=== PATIENT | female | born 1985 | race Caucasian/White ===

== ENCOUNTER → 2021-09-05 15:11 | Outpatient (BNVA) | payer OTHER, SELFPAY | PROVIDERS: Visit Provider Obstetrics & Gynecology | DX: Z31.69 Encounter for other general counseling and advice on procreation (principal) | CPT/HCPCS: 83036; 83520; 83525; 84443 ==

== ENCOUNTER → 2021-09-19 08:54 | Outpatient (BNVA) | payer OTHER, SELFPAY | PROVIDERS: Visit Provider Obstetrics & Gynecology | DX: N97.9 Female infertility, unspecified (principal) | CPT/HCPCS: 76830 ==

== ENCOUNTER 2021-11-05 07:49 | Outpatient (CLI) | payer OTHER, SELFPAY ==
--- NOTE | 2021-11-05 08:00 | FL_ITS ---
WS: [id number] Hysterosalpingogram, 11/05/2021 Clinical Data: N97.9 - Female infertility, unspecified Comparison: None. Fluoroscopy time: 0.4 minutes. Findings: Dr. Hairston injected the contrast material to fill the uterine cavity. There were air bubbles within the uterine cavity but no intraluminal filling defects. The configuration of the cavity was normal. The fallopian tubes filled normally and there was bilateral contrast extravasation into the peritoneu m. No evidence of fallopian tube obstruction or dilatation is seen. FL/FL hysterosalpingography [id number] Impression: Normal hysterosalpingogram.
[2021-11-05] MEDS: iohexol 300 mg/mL 50 mL Btl VAGINAL (08:43)
--- NOTE | 2021-11-05 09:41 | PM.OP ---
Operative Report Date of procedure: November 05, 2021 Pre-op Diagnosis: female infertility Post-op diagnosis: same Post-op Findings: normal uterine contour, patent fallopian tubes Procedure Done: hysterosalpingogram Pathology: none sent Surgeon: Elisabeth Hairston Anesthesia: None Estimated blood loss (mL): 0 IV fluids (mL): 0 Urine output (mL): 0 Complications: none Findings: 10 ml of contrast used normal uterine contour, patent fallopian tubes Condition: stable Disposition: no change Procedure: The patient was placed in the dorsal lithotomy position. The speculum was placed into the vagina and the cervix visualized. It was cleansed with betadine. A single tooth tenaculum was placed onto the anterior lip of the cervix. The uterus was sounded to 7 cm. The canula was placed through the cervix and into the uterus. 10 ml of contrast was injected into the uterus. Fluoroscopy was used to take images. All of the instruments were removed. A final picture was taken. The patient tolerated the procedure well. Counts were correct. She was dismissed home in stable condition.
== END 2021-11-05 07:50 | disposition home or self-care (01) ==
LOC: RAD 07:54
PROVIDERS: Visit Provider Obstetrics & Gynecology
DX: N97.9 Female infertility, unspecified (principal)
CPT/HCPCS: 74740

== ENCOUNTER → 2023-01-06 16:15 | Outpatient (BNVA) | payer OTHER, SELFPAY | PROVIDERS: Visit Provider Nurse Practitioner Women's Health | DX: Z01.419 Encounter for gynecological examination (general) (routine) without abnormal findings (principal) | CPT/HCPCS: 88175 ==

== ENCOUNTER 2023-03-05 14:08 | Outpatient (CLI) | payer OTHER, SELFPAY ==
--- NOTE | 2023-03-05 14:21 | XR_ITS ---
WS: [id number] Exam: XR hip RT 2-3V wo/w pel* [id number] Date/Time of Exam: 03/05/2023 2:27 PM Reason For Exam: V80.010A - Animal-rider injured by fall from or being thr... No acute fracture or dislocation. The joint compartments well maintained. Small subcortical cyst in t he femoral neck. Normal soft tissues. XR/XR hip RT 2-3V wo/w pel* [id number] IMPRESSION: 1. No fracture or other significant finding.
== END 2023-03-05 14:09 | disposition home or self-care (01) ==
LOC: RAD 14:13
PROVIDERS: PCP Registered Nurse; Visit Provider Registered Nurse
DX: S79.911A Unspecified injury of right hip, initial encounter (principal); V80.010A Animal-rider injured by fall from or being thrown from horse in noncollision accident, initial encounter
CPT/HCPCS: 73502

== ENCOUNTER 2024-09-01 07:57 | Outpatient (CLI) | payer OTHER, SELFPAY ==
[2024-09-01 08:42] LABS: Progesterone 32.37 ng/mL
== END 2024-09-01 07:58 | disposition home or self-care (01) ==
LOC: LAB 07:59
PROVIDERS: PCP Registered Nurse; Visit Provider Specialist
DX: Z32.00 Encounter for pregnancy test, result unknown (principal)
CPT/HCPCS: 36415; 84144; 84702

== ENCOUNTER 2024-09-04 07:38 | Outpatient (CLI) | payer OTHER, SELFPAY ==
[2024-09-04 08:43] LABS: Progesterone 29.65 ng/mL
== END 2024-09-04 07:39 | disposition home or self-care (01) ==
LOC: LAB 07:39
PROVIDERS: PCP Registered Nurse; Visit Provider Specialist
DX: Z32.00 Encounter for pregnancy test, result unknown (principal)
CPT/HCPCS: 84144; 84702

== ENCOUNTER → 2024-09-21 08:09 | Outpatient (BNVA) | payer OTHER, SELFPAY | PROVIDERS: PCP Registered Nurse; Visit Provider Nurse Practitioner Women's Health | DX: Z32.01 Encounter for pregnancy test, result positive (principal); N92.6 Irregular menstruation, unspecified | CPT/HCPCS: 81025; 84702; 86850; 86900 ==

== ENCOUNTER → 2024-10-03 09:29 | Outpatient (BNVA) | payer OTHER, SELFPAY | PROVIDERS: PCP Registered Nurse; Visit Provider Nurse Practitioner Women's Health | DX: Z36.9 Encounter for antenatal screening, unspecified (principal) | CPT/HCPCS: 76801 ==

== ENCOUNTER → 2024-10-16 15:26 | Outpatient (BNVA) | payer OTHER, SELFPAY | PROVIDERS: PCP Registered Nurse; Visit Provider Nurse Practitioner Women's Health | DX: O09.90 Supervision of high risk pregnancy, unspecified, unspecified trimester (principal) | CPT/HCPCS: 80307; 84315; 84443; 85025; 86592; 86762; 86803; 86850; 86900; 87086; 87340; 87491; 87591; 87661; 87806 ==

== ENCOUNTER → 2024-11-21 08:06 | Outpatient (BNVA) | payer OTHER, SELFPAY | PROVIDERS: PCP Registered Nurse; Visit Provider Nurse Practitioner Women's Health | DX: O09.90 Supervision of high risk pregnancy, unspecified, unspecified trimester (principal) | CPT/HCPCS: 82950; 84315 ==

== ENCOUNTER → 2024-12-21 09:18 | Outpatient (BNVA) | payer OTHER, SELFPAY | PROVIDERS: PCP Registered Nurse; Visit Provider Obstetrics & Gynecology | DX: Z36.9 Encounter for antenatal screening, unspecified (principal) | CPT/HCPCS: 76805 ==

== ENCOUNTER → 2024-12-25 09:09 | Outpatient (BNVA) | payer OTHER, SELFPAY | PROVIDERS: PCP Registered Nurse; Visit Provider Obstetrics & Gynecology | DX: O09.90 Supervision of high risk pregnancy, unspecified, unspecified trimester (principal) | CPT/HCPCS: 84315 ==

== ENCOUNTER → 2025-01-18 08:52 | Outpatient (BNVA) | payer OTHER, SELFPAY | PROVIDERS: PCP Registered Nurse; Visit Provider Nurse Practitioner Women's Health | DX: O09.90 Supervision of high risk pregnancy, unspecified, unspecified trimester (principal) | CPT/HCPCS: 76816; 84315; 85025 ==

== ENCOUNTER → 2025-02-22 08:45 | Outpatient (BNVA) | payer OTHER, SELFPAY | PROVIDERS: PCP Registered Nurse; Visit Provider Nurse Practitioner Women's Health | DX: O09.90 Supervision of high risk pregnancy, unspecified, unspecified trimester (principal) | CPT/HCPCS: 82950; 84315 ==

== ENCOUNTER → 2025-03-08 15:58 | Outpatient (BNVA) | payer OTHER, SELFPAY | PROVIDERS: PCP Registered Nurse; Visit Provider Obstetrics & Gynecology | DX: O09.90 Supervision of high risk pregnancy, unspecified, unspecified trimester (principal) | CPT/HCPCS: 84315 ==

== ENCOUNTER → 2025-03-19 07:56 | Outpatient (BNVA) | payer OTHER, SELFPAY | PROVIDERS: PCP Registered Nurse; Visit Provider Nurse Practitioner Women's Health | DX: Z36.9 Encounter for antenatal screening, unspecified (principal) | CPT/HCPCS: 76816 ==

== ENCOUNTER → 2025-04-16 10:00 | Outpatient (BNVA) | payer OTHER, SELFPAY | PROVIDERS: PCP Registered Nurse; Visit Provider Obstetrics & Gynecology | DX: O09.90 Supervision of high risk pregnancy, unspecified, unspecified trimester (principal) | CPT/HCPCS: 84315; 87081 ==

== ENCOUNTER → 2025-04-23 09:11 | Outpatient (BNVA) | payer OTHER, SELFPAY | PROVIDERS: PCP Registered Nurse; Visit Provider Obstetrics & Gynecology | DX: O09.90 Supervision of high risk pregnancy, unspecified, unspecified trimester (principal) | CPT/HCPCS: 84315 ==

== ENCOUNTER 2025-04-30 09:52 | Outpatient (CLI) | payer OTHER, SELFPAY ==
[2025-04-30 09:48] VITALS: BMI 36.2
[2025-04-30 10:08] VITALS: BP 127/79; PULSE 81
[2025-04-30 10:23] VITALS: BP 124/73; PULSE 90
[2025-04-30 10:53] VITALS: BP 155/65; PULSE 90
[2025-04-30 11:08] VITALS: BP 146/67; PULSE 80
[2025-04-30 11:09] VITALS: BP 134/72; PULSE 75
[2025-04-30 11:23] VITALS: BP 129/66; PULSE 73
== END 2025-04-30 11:50 | disposition home or self-care (01) ==
LOC: OPOB 09:53 → OBGYN 09:53
PROVIDERS: Absent Provider Obstetrics & Gynecology; PCP Registered Nurse; Visit Provider Obstetrics & Gynecology
DX: O13.9 Gestational [pregnancy-induced] hypertension without significant proteinuria, unspecified trimester (principal); Z3A.00 Weeks of gestation of pregnancy not specified
CPT/HCPCS: 59025; 84315; 99211

== ENCOUNTER 2025-05-02 11:14 | Outpatient (CLI) | payer OTHER, SELFPAY ==
[2025-05-02 11:14] VITALS: BMI 35.1
[2025-05-02 11:38] VITALS: BP 125/78; PULSE 77
[2025-05-02 12:00] VITALS: BP 123/77; PULSE 75
== END 2025-05-02 12:14 | disposition home or self-care (01) ==
LOC: OPOB 11:18 → OBGYN 11:18
PROVIDERS: PCP Registered Nurse; Visit Provider Obstetrics & Gynecology
DX: O13.9 Gestational [pregnancy-induced] hypertension without significant proteinuria, unspecified trimester (principal); Z3A.00 Weeks of gestation of pregnancy not specified
CPT/HCPCS: 59025; 99211

== ENCOUNTER 2025-05-07 11:35 | Outpatient (CLI) | payer OTHER, SELFPAY ==
[2025-05-07 11:35] VITALS: RESP 18; BMI 35.3
[2025-05-07 11:44] VITALS: BP 126/78; PULSE 87
[2025-05-07 12:04] VITALS: BP 122/79; PULSE 88
== END 2025-05-07 12:22 | disposition home or self-care (01) ==
LOC: OPOB 11:40 → OBGYN 11:41
PROVIDERS: PCP Registered Nurse; Visit Provider Obstetrics & Gynecology
DX: O09.529 Supervision of elderly multigravida, unspecified trimester (principal); Z3A.00 Weeks of gestation of pregnancy not specified; O13.9 Gestational [pregnancy-induced] hypertension without significant proteinuria, unspecified trimester
CPT/HCPCS: 59025; 84315; 99211

== ENCOUNTER 2025-05-14 01:09 | Inpatient (IN) | payer OTHER, SELFPAY ==
[2025-05-14] VITALS (149 sets, daily range): BP systolic 88–188; BP diastolic 32–85; PULSE 58–119; RESP 14–18; TEMP 35.6–37.3; O2SAT 92–99; BMI 35.6
[2025-05-14 01:07] LABS: Hematocrit 36.1 % (36-47); Hemoglobin 12.40 g/dL (11.27-16.99); Mean Corpuscular HGB Conc 34.3 g/dL (30-55); Mean Corpuscular Hemoglobin 31.6 pg (27-33); Mean Corpuscular Volume 91.9 fl (85-98); Nucleated Red Blood Cells % 0 %; Platelet Count 126 10^3/cmm (157-399); Red Blood Count 3.93 10^6/uL (3.85-5.65); White Blood Count 9.40 10^3/uL (3.29-11.43)
[2025-05-14 01:30] LABS: Glucose Urine UA Negative (Normal); Nitrate Urine Negative (Negative); Specific Gravity, Urine 1.025 (1.005-1.030)
[2025-05-14 01:45] LABS: Add Urine Microscopic? YES; Alanine Aminotransferase 16 U/L (0-33); Albumin Level 3.4 g/dL (3.5-5.2); Alkaline Phosphatase 80 U/L (35-105); Aspartate Amino Transferase 22 U/L (0-32); Blood Urea Nitrogen 12 mg/dL (6-20); Calcium 9.5 mg/dL (8.5-10.5); Carbon Dioxide 20 mmol/L (22-29); Chloride 104 mmol/L (98-107); Globulin 2.7 g/dL (1.3-4.6); Glucose 90 mg/dL (65-115); Osmolality Calculated 281 mOsm/kg (285-295); Sodium 136 mmol/L (136-145); Total Protein 6.1 g/dL (6.6-8.7); Uric Acid 5.9 mg/dL (2.4-5.7)
[2025-05-14 01:48] LABS: Anion Gap 15.9 (5-19); Potassium 3.9 mmol/L (3.5-5.1)
[2025-05-14 01:51] LABS: UPRO/UCREAT Ratio 0.09 mg/mg CR
[2025-05-14] MEDS: oxytocin 30 UNIT/500 ML BAG IV (05:55)
[2025-05-14] MEDS: ROPivacaine premix 200 MG/100 ML PREMIX 10 MG EPIDURAL ×2 (07:20→11:46)
--- NOTE | 2025-05-14 07:24 | PM.OPHPUD ---
Labor & Delivery H&P Update Date of Procedure: May 14, 2025 Date H&P Performed: 05/07/25 Changes to previous documentation: 40yo female at 40.4wk IUP YZAAN 05/10/25 admitted to LD with c/o SROM at 2300 on 05/13/25(Nitrazine +). Pt admits to goodFM, and no vaginal bleeding. Hx of 2 SAB, with this conceived by IVF. EFM- Cat 1 Cx- 1cm/90%/-2 vtx initially , now 6cm/100%/-1. Hx reviewed- significant hs of low back pain and HAs. GBS- neg Receiving Epidural for pain management. Admission Diagnosis: Primary indication for procedure: SROM at 40.4 wk IUP Planned procedure: Management of labor Related Problem List Diagnoses (1) Supervision of high risk , antepartum: conception by IVF, initially 2 embryos but only one surviving. (2) Advanced maternal age (AMA), 40 years or greater: (3) Headache in : (4) 40 weeks gestation of : (5) SROM (spontaneous rupture of membranes):
--- NOTE | 2025-05-14 07:25 | ANES.PREANE2 ---
Pre-Anesthetic Assessment Height/Weight: Height 1.55 m Weight 85.729 kg Pulse BP Pulse Ox O2 Del Method 94 166/77 97 Room Air 05/14/25 07:16 05/14/25 07:16 05/14/25 07:13 05/14/25 00:30 Preop Diagnosis: Active labor Epidural Familial anesthetic complications: none Was Beta Alex taken within 24 hours: N/A Was Clonidine taken within 24 hours: N/A Last Intake: 21:00 Social No alcohol and No tobacco Exam alert, oriented x 3, clear to auscultation bilaterally and regular rate & rhythm Airway Cervical ROM: within normal limits Mallampati: Class II Dentition: full History/ROS No significant history except as noted Pulmonary None reported CV/HEM None reported None reported Hepatic None reported GI Gastroesophageal Reflux Disease Metabolic None reported Musc/skel Osteoarthritis/DJD Neuropsych None reported Anesthetic Plan ASA status: 2 Anesthesia: Eval. for regional block (Epidural) Risk of > 500 ml blood loss (7ml/kg in children): No Medications/Allergies Home Medications ?Medication ?Instructions ?Recorded ?Confirmed ?Last Taken ?Type docosahexaenoic acid 200 mg 200 mg PO DAILY 09/21/24 05/14/25 05/13/25 History capsule ( DHA) [id number]-nypshgww 1 cap PO Q8H PRN pain #30 caps 11/21/24 05/14/25 Unknown Rx 50 mg-300 mg-40 mg capsule (Fioricet) famotidine 20 mg tablet (Pepcid) 20 mg PO DAILY 04/04/25 05/14/25 05/13/25 History magnesium gluconate 12.5 mg 500 mg PO TID 04/04/25 05/14/25 05/13/25 History magnesium (250 mg) tablet Allergies Allergy/AdvReac Type Severity Reaction Status Date / Time doxycycline Allergy Mild Hives, Verified 05/07/25 10:29 fever Sulfa (Sulfonamide Allergy Unknown unknown Verified 05/07/25 10:29 Antibiotics) sulfamethoxazole (From Allergy Unknown unknown Verified 05/07/25 10:29 Bactrim) trimethoprim (From Bactrim) Allergy Unknown unknown Verified 05/07/25 10:29 Current Medications Generic Name Dose Route Start Last Admin Trade Name Freq PRN Reason Stop Dose Admin Acetaminophen 650 mg 05/14/25 00:56 05/14/25 04:14 Acetaminophen 325 Mg Tablet PO 650 mg Q6H PRN Administration Mild pain or temp > 100.4 Calcium Carbonate 1,000 mg 05/14/25 00:56 05/14/25 02:51 Calcium Carbonate 500 Mg Chew Tablet PO 1,000 mg Q4H PRN Administration Heartburn/Indigestion (Use 1st) Dextrose/Lactated Ringer's 1,000 mls @ 125 mls/hr 05/14/25 01:00 05/14/25 05:56 Dextrose 5%-Lactated Ringers IV 125 mls/hr .Q8H SANJEEV Administration Oxytocin 30 unit in 500 mls @ 1 mls/hr 05/14/25 03:15 05/14/25 06:15 Pitocin IV 0 milliunit/min .Q24H SANJEEV 0 mls/hr Protocol Titration 1 MILLIUNIT/MIN PFSH Anesthesia Medical History No pertinent past medical history neghx: htn, dm, thyroid, dvt/pe PCP: none Surgical History History of loop electrical excision procedure (LEEP) 2006 History of hip surgery cartilage repaired-left side Family History Grandmother Cancer Paternal Father Diabetes Mother Hypertension Other Stroke Denies family history of CAD (coronary artery disease) Clotting disorder Hyperlipidemia Chronic kidney disease (CKD) Bleeding disorder Thyroid disease Social History Smoking and tobacco/nicotine status: former use of tobacco/nicotine Alcohol intake: never Substance/Drug Use: never Adopted: No Caregiver/support person: No Lives independently: No Household members: spouse Marital status: service: Yes status: Medically Discharged/Retired branch: [employer] Known or Potential Exposure: None Current occupational status: employed Sexually active: Yes Do you think of yourself as: Straight/Heterosexual Current gender identity: Female Female Reproductive History : 3 Data Anesthesia 05/14/25 00:42 05/14/25 00:42 Short CBC 05/14/25 Range/Units 00:42 WBC 9.40 (3.29-11.43) 10^3/uL Hgb 12.40 (11.27-16.99) g/dL Hct 36.1 (36-47) % MCV 91.9 (85-98) fl Plt Count 126 L (157-399) 10^3/cmm Neut % (Auto) 67.5 % Neut # (Auto) 6.34 (1.8-7.7) 10^3/uL BMP 05/14/25 00:42 Sodium 136 Potassium 3.9 Chloride 104 Carbon Dioxide 20 L BUN 12 Creatinine 0.6 Glucose 90 Calcium 9.5 Liver Function 05/14/25 Range/Units 00:42 Total Bilirubin 0.2 (0.15-1.2) mg/dL AST 22 (0-32) U/L ALT 16 (0-33) U/L Alkaline Phosphatase 80 (35-105) U/L Albumin 3.4 L (3.5-5.2) g/dL Urine 05/14/25 05/14/25 Range/Units 00:40 00:42 Urine Color Cancelled Yellow Urine Appearance Cancelled Clear Urine pH Cancelled 6.0 Ur Specific [place] Cancelled 1.025 Urine Protein Cancelled Negative Urine Glucose (UA) Cancelled Negative Urine Ketones Cancelled Trace Urine Nitrate Cancelled Negative Urine Bilirubin Cancelled Negative Ur Leukocyte Esterase Cancelled Negative Urine RBC Cancelled 21-50 H Urine WBC Cancelled 0-5 Ur Renal Epithelial Cell Cancelled Blood Bank 05/14/25 00:42 Blood Type A Positive Rho(D) Type Rh positive Antibody Screen Negative Anesthesia Procedures Epidural Time Out Performed: Yes Consents Signed: Procedure Consent Consent: from patient, risks and benefits reviewed and patient agrees to proceed Lumbar Level: L3-L4 Epidural position: sitting Epidural procedure: sterile prep of area, 1% lidocaine to numb the area, 18 g needle, negative for paresthesia passed, neg for paresthesia, test dose given, 1.5% xylocaine 1:200k epi, 0.2% Ropivacaine bolus ml (5), placed PCEA, no systemic response, sterile dressing applied, L.U.D. no apparent complications and 0.2% Ropiavacaine @ mls/hr (10) Additional Comments: GERMAINE 5cm, catheter left at 11cm, neg. heme CSF. Tolerated well
--- NOTE | 2025-05-14 08:34 | P.PCN_ITS ---
Bone Marrow Biopsy Bone Marrow Biopsy: I was consulted by [] office regarding bone marrow biopsy on []. Briefly, the patient is a [] year old [] with []. In the Outpatient Services Department, with nursing staff and laboratory technologists in attendance, the procedure was discussed with the patient. Appropriate consent form had been signed. Appropriate alternatives, benefits and risks of procedure were discussed with the patient and she was pre- operatively assessed with a history and physical by myself and cleared for the biopsy procedure. The patient did request IV sedation and that was provided by the Anesthesia Department. Thank you for allowing me to participate in this patient's care and diagnosis. Coding Level of Care Code Acute Code for Chg Fwd
--- NOTE | 2025-05-14 09:26 | ANE.PACU2 ---
Inpatient post-anesthesia follow up: Vital signs: Temperature 96.8 F Pulse Rate 93 Respiratory Rate Blood Pressure 151/85 Pulse Oximetry 97 Oxygen Delivery Me thod Room Air Oxygen Flow Rate Fraction of Inspir ed Oxygen Pain level: 4 Additional Comments: Called to room for one sided epidural, patient place right side down, pulled catheter 1cm, bolus 5mL ropiv. given and 100mcg fentanyl. Re-assessed 20minutes later with improvement right side now numb, pt. resting comfortably.
--- NOTE | 2025-05-14 10:53 | P.PN_ITS ---
SHAPE HAND Subjective 2 Subjective: Interval history: 40-year-old female G3, P0 at 40.4 weeks gestation conceived by IVF. Labor augmented with Pitocin (1 mu), presently at 9 cm / 100%/+1 vertex. EFM?category 1. Nursing staff being supportive of patient, now having increased anxiety. Feeling pelvic pressure. Labor: Station: 0 Amniotic Membrane Status: Ruptured Monitor Mode: External Contraction Pattern: Regular Vitals/I&O/Wt Last Vital Signs Temp 96.8 F L 05/14/25 09:01 Pulse 85 05/14/25 10:46 BP 157/77 05/14/25 10:41 Pulse Ox 96 05/14/25 10:46 O2 Del Method Room Air 05/14/25 00:30 05/13/25 05/14/25 05/14/25 22:59 06:59 14:59 Intake Total 0.333 / 0.333 0 / 0 Balance 0.333 / 0.333 0 / 0 Weight last 48 hrs Weight 85.729 kg Physical Exam 2 Urinary Catheter Management: Hernandez: Cath Placed During This Visit: yes Urinary Catheter Date of Insertion: 05/14/25 Urinary Catheter Time of Insertion: 08:10 Data 05/14/25 00:42 05/14/25 00:42 A&P Assessment and plan (1) 40 weeks gestation of : (2) SROM (spontaneous rupture of membranes): (3) Supervision of high risk , antepartum: Advanced maternal age Conception by IVF PDMP PDMP Reviewed: Not Reviewed Attestations 2 Medical Necessity Statement*: Admission to labor and delivery for management of labor at 40.4 weeks with SROM. Coding Level of Care Code Acute Code for Chg Fwd Diagnoses 40 weeks gestation of Z3A.40 SROM (spontaneous rupture of membranes) Supervision of high risk , antepartum O09.90
[2025-05-14] MEDS: ondansetron 2 mg/ML SDV 2 mL 4 MG IVP (10:58)
--- NOTE | 2025-05-14 12:26 | PM.MISC ---
Miscellaneous Note Note: Return of pain on contractions on right side, gave bupivicaine 0.25% 10 ml via epidural with minimal improvement. Patient is 9.5 cm dilated ands discussed replacement as option. Patient declining replacement at this time given how far progressed she is. Increased rate to 13 ml/hr and increased bolus dose to 6 ml in an effort to ameliorate symptoms until pushing can commence
--- NOTE | 2025-05-14 13:39 | PM.OBGYPN ---
SENIOR ADMINISTRATIVE SERVICES OFFICER Subjective Subjective: Interval history: 40-year-old female G3, P0 at 40.4 weeks gestation has progressed in labor to complete dilatation, +1 station. Patient has increased anxiety, discussion of her not wanting to continue labor or pushing and questions regarding proceeding with . Encourage patient for trial of pushing before consideration of section. Patient understands and agrees. Epidural has been redosed, comfort has improved. Her anxiety is mostly from her left hip pain. Labor: Station: -1 Amniotic Membrane Status: Ruptured Monitor Mode: External Contraction Pattern: Regular Vitals/I&O/Wt Last Vital Signs Temp 96.8 F L 05/14/25 09:01 Pulse 86 05/14/25 13:23 BP 180/82 05/14/25 13:23 Pulse Ox 97 05/14/25 12:36 O2 Del Method Room Air 05/14/25 00:30 05/13/25 05/14/25 05/14/25 22:59 06:59 14:59 Intake Total 0.333 / 0.333 102.1 / 102.1 Balance 0.333 / 0.333 102.1 / 102.1 Weight last 48 hrs Weight 85.729 kg Physical Exam Urinary Catheter Management: Hernandez: Cath Placed During This Visit: yes Urinary Catheter Date of Insertion: 05/14/25 Urinary Catheter Time of Insertion: 08:10 Data 05/14/25 00:42 05/14/25 00:42 A&P Assessment and plan (1) SROM (spontaneous rupture of membranes): (2) 40 weeks gestation of : (3) Advanced maternal age (AMA), 40 years or greater: (4) Supervision of high risk , antepartum: (5) Left hip pain: PDMP PDMP Reviewed: Not Reviewed Attestations Medical Necessity Statement*: Patient admitted to labor and delivery with SROM at 40.4 weeks gestation Coding Level of Care Code Acute Code for Chg Fwd Diagnoses SROM (spontaneous rupture of membranes) 40 weeks gestation of Z3A.40 Advanced maternal age (AMA), 40 years or greater Supervision of high risk , antepartum O09.90 Left hip pain M25.552
--- NOTE | 2025-05-14 14:16 | P.PN_ITS ---
WAIST CUTTER Subjective 2 Subjective: Interval history: 40-year-old female G3, P0 at 40.4 weeks gestation, conception by IVF, has progressed to complete dilatation and has been pushing x 2 hours. Patient requests section delivery instead of proceeding for a vaginal delivery. Risk to include bleeding, infection, injury to pelvic organs and anesthesia reviewed in great extent patient understands and consent signed. Patient has had a few elevated systolic blood pressures while pushing, will reevaluate pressures after delivery to see if magnesium sulfate and other antihypertensives are needed. Nursing staff advised to call or team and anesthesia to prepare for primary section delivery. Labor: Station: -1 Amniotic Membrane Status: Ruptured Monitor Mode: External Contraction Pattern: Regular Vitals/I&O/Wt Last Vital Signs Temp 96.1 F L 05/14/25 14:11 Pulse 96 05/14/25 14:11 BP 146/72 05/14/25 14:11 Pulse Ox 96 05/14/25 14:10 O2 Del Method Room Air 05/14/25 00:30 05/13/25 05/14/25 05/14/25 22:59 06:59 14:59 Intake Total 0.333 / 0.333 102.1 / 102.1 Balance 0.333 / 0.333 102.1 / 102.1 Weight last 48 hrs Weight 85.729 kg Physical Exam 2 Urinary Catheter Management: Hernandez: Cath Placed During This Visit: yes Urinary Catheter Date of Insertion: 05/14/25 Urinary Catheter Time of Insertion: 08:10 Data 05/14/25 00:42 05/14/25 00:42 A&P Assessment and plan (1) SROM (spontaneous rupture of membranes): (2) 40 weeks gestation of : (3) Left hip pain: (4) Advanced maternal age (AMA), 40 years or greater: (5) Supervision of high risk , antepartum: PDMP PDMP Reviewed: Not Reviewed Attestations 2 Medical Necessity Statement*: Patient admitted to labor and delivery with SROM for management of labor. Coding Level of Care Code Acute Code for Chg Fwd Diagnoses SROM (spontaneous rupture of membranes) 40 weeks gestation of Z3A.40 Left hip pain M25.552 Advanced maternal age (AMA), 40 years or greater Supervision of high risk , antepartum O09.90
[2025-05-14] MEDS: ceFAZolin 2,000 mg SDV 2000 MG IVP (14:25)
[2025-05-14] MEDS: metoclopramide 5 mg/mL SDV 2 mL 10 MG IV (14:25)
--- NOTE | 2025-05-14 15:52 | P.PCNOB_ITS ---
Delivery Note: Date of delivery: May 14, 2025 Pre-delivery diagnoses: 40-year-old female at 40.4 weeks g estation High risk SROM IVF conception Advanced maternal age Degenerative disc disease with left hip pain Post-delivery diagnoses: Same Procedure: Primary low-transverse section Op report anesthesia: Spinal Delivering Physician: Viri Sanchez DO Estimated blood loss (mL): 500 Findings: Viable baby girl Pre-Delivery Course: 40-year-old female at 40.4 weeks g estation was admitted to labor and d [facility] after SROM at 2300 on 05/13/2025. At initial pelvic exam patient was 5 to 6 cm and progressed rapidly to 8 cm. Patient's labor was augmented with Pitocin and she progressed to complete dilatation, and pushed for approximately 2 hours with very little descent from +1 station. Presentation of persistent OP was noted. Patient requested to proceed with section delivery for she no longer wanted to push and refused a vaginal delivery. Risk and benefits of the surgical procedure were reviewed with patient, she verbalized understanding and consents were signed. Delivery: 40-year-old female delivered via l ow-transverse section, patient had labored and progressed to complete dilatation with +1 OP presentation. Patient requested elective for she no longer wanted to push to achieve a vaginal delivery. After informed consent, patient was transported to surgical suite position for spinal anesthetic. Patient was then repositioned in the supine position with a left lateral tilt with heart tones dopplered in the 140s. The abdomen was prepped and draped in the standard fashion. Timeout was performed with all in agreement. A Pfannenstiel incision was made with a knife and extended to the fascia the fascia was incised and the incision lateralized. The rectus muscles was entered in the midline and the peritoneum dissected superiorly and inferiorly. Peritoneum was entered and the incision extended. A bladder blade was placed and a bladder flap created with Metzenbaums and pickups and displaced with the bladder blade. A low transverse uterine incision was made with a knife and extended laterally. The bag of montoya were entered small amount of meconium noted. The vertex was elevated and delivered through the incision atraumatically followed by the anterior and posterior shoulders with the remainder of the baby's body to follow. Spontaneous robust cry was noted. After delayed clamping of the cord the cord was clamped x 2 and transected. The baby was shown to mother and then placed on the warmer for nursing assessment. Arterial and venous blood gases were drawn and handed off. The placenta was manually removed the uterus exteriorized and wiped clean with a moist lap sponge, IV solution containing Pitocin was started in a bolus manner. The uterus was massaged and noted to be firm.. Bladder blade was replaced to protect the bladder and the uterine incision was closed with 0 Vicryl in a running interlocking stitch. The incision was oversewn with another 0 Vicryl with good approximation and hemostasis. The posterior cul-de-sac and sidewalls were wiped clean with a moist lap sponge and the uterus replaced in the abdomen. The peritoneum and rectus muscle approximated with 2-0 Vicryl the fascia approximated with 0 Vicryl in a running stitch the subcu fat approximated with 2-0 Vicryl and the skin approximated in a subcuticular manner with 4-0 Vicryl. The incision was cleansed and noted to be hemostatically intact. The uterus and vaginal vault were cleared of clots and cleaned. The uterus massaged and noted to be firm. Mother and infant are both in stable and satisfactory condition Needle and instrument and sponge count was correct. ?8/9 weight?pending Post-Delivery Status: Stable History History History 3 Term 1 0 Miscarriages/Ectopic 2 Living Children 1 Past Pregnancies Del. Date GA/Weeks Outcome Route Wt Inf Gender Labor Lgth Comp. Anesth esia Location 05/14/25 40 live - full term Female regional A&P Assessment and plan (1) Delivery by section of full-term infant: Patient requested elective section, declined continuation of pushing for vaginal delivery. 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
[2025-05-15 02:59] LABS: Hematocrit 30.4 % (36-47); Hemoglobin 10.20 g/dL (11.27-16.99); Mean Corpuscular HGB Conc 33.6 g/dL (30-55); Mean Corpuscular Hemoglobin 31.2 pg (27-33); Mean Corpuscular Volume 93.0 fl (85-98); Platelet Count 111 10^3/cmm (157-399); Red Blood Count 3.27 10^6/uL (3.85-5.65); White Blood Count 13.50 10^3/uL (3.29-11.43)
[2025-05-15 04:50] VITALS: BP 103/53; PULSE 68
--- NOTE | 2025-05-15 08:00 | ANE.PACU2 ---
Inpatient post-anesthesia follow up: Airway intact: Yes Vital signs: Temperature 98.3 F Pulse Rate 84 Respiratory Rate 16 Blood Pressure 151/75 Pulse Oximetry 98 Oxygen Delivery Me thod Room Air Oxygen Flow Rate Fraction of Inspir ed Oxygen Hydration adequate: Yes Nausea and vomiting: No Pain level: 1 Mental status: Baseline Additional Comments: Patient went to C section and epidural pulled for spinal Epidural Start/End: Epidural Start Date: 05/14/25 Epidural Start Time: 07:07 Epidural End Date: 05/14/25 Epidural End Time: 14:30
[2025-05-15 09:00] VITALS: BP 107/53; PULSE 74; RESP 16; TEMP 36.7
[2025-05-15 09:12] VITALS: BP 107/53; PULSE 74
[2025-05-15] MEDS: PRENATAL VIT NO.130/IRON/FOLIC 1 EACH TABLET PO (09:25)
--- NOTE | 2025-05-15 11:50 | P.PN_ITS ---
MANAGER OPERATIONS RESEARCH Subjective 2 Subjective: Interval history: c/o mild incisional pain no bleeding, nausea, vomiting tolerating PO well caring for without any difficulties Labor: Station: -1 Amniotic Membrane Status: Ruptured Monitor Mode: Palpation Contraction Pattern: Regular Status: Category I Vitals/I&O/Wt Last Vital Signs Temp 98.1 F 05/15/25 09:00 Pulse 74 05/15/25 09:12 Resp 16 05/15/25 09:00 BP 107/53 05/15/25 09:12 Pulse Ox 94 05/14/25 19:06 O2 Del Method Room Air 05/15/25 09:00 05/15/25 05/15/25 05/15/25 06:59 14:59 22:59 Intake Total 1295.25 / 4004.35 Output Total 675 / 1975 Balance 620.25 / 9.35 Weight last 48 hrs Weight 189 lb Physical Exam 2 Narrative: General comfortable, awake, alert VS afebrile, normal Lungs: clear Cor: RRR Abd: soft, nontender Wound clean and dry Ext: no edema postop Hgb 10.2 Urinary Catheter Management: Hernandez: Cath Placed During This Visit: yes, but has since been removed by the nurse Reason for Continuing Indwelling Catheter: Decision to DC Catheter Urinary Catheter Date of Insertion: 05/14/25 Urinary Catheter Time of Insertion: 08:10 Date Urinary Catheter Removed: 05/15/25 Time Urinary Catheter Discontinued: 07:40 Data 05/15/25 02:50 05/14/25 00:42 Micro: Microbiology 05/14/25 00:42 Urine Culture - Preliminary Urine,Clean Catch A&P Assessment and plan 1. Delivery by section of full-term infant: POD #1 primary low-transverse doing well continue postop care ambulate PDMP PDMP Reviewed: Not Reviewed Attestations 2 Medical Necessity Statement*: patient s/p , for postoperative and care Coding Level of Care Code Acute Code for Chg Fwd Diagnoses Delivery by section of full-term O82
[2025-05-15] MEDS: HYDROcodone-acetaminophen 5-325 mg Tablet PO (12:16)
[2025-05-15 17:00] VITALS: TEMP 36.2
[2025-05-15 17:01] VITALS: BP 102/55; PULSE 78
[2025-05-15 22:40] VITALS: BP 112/59; PULSE 88
[2025-05-16] MEDS: HYDROcodone-acetaminophen 5-325 mg Tablet PO (02:39)
[2025-05-16 04:40] VITALS: BP 131/69; PULSE 81
[2025-05-16] MEDS: PRENATAL VIT NO.130/IRON/FOLIC 1 EACH TABLET PO (08:32)
[2025-05-16] MEDS: ferrous sulfate EC 325 mg Tablet PO (08:33)
[2025-05-16 08:34] VITALS: BP 141/76; PULSE 87
[2025-05-16 08:35] VITALS: BP 141/76; PULSE 87; RESP 16; TEMP 36.7; O2SAT 98
--- NOTE | 2025-05-16 12:50 | PM.OBGYDC ---
Discharge Providers COOPERER Date of Admission: 05/14/25 01:09 Date of Discharge: 05/16/25 Attending Provider at Admission: Viri Sanchez DO Attending Provider at Discharge: Bubba Reed MD Consults: none Primary COOPERER: Bubba Reed MD Primary Care Provider: JOEL Guallpa Diagnoses at Discharge Discharge Diagnosis 1. Delivery by section of full-term : Details from hospital stay: 40 y.o. A2 at 40 w 4 d no complications presented to L&D c/o spontaneous rupture of membranes with clear fluid patient progressed to complete dilatation She pushed for more than two hours with inadequate descent at that time, it was decided to proceed with for delivery Primary low-transverse was done without any complications patient did well postoperatively and was discharged to home on the second postoperative day Reason for Visit Reason for Visit: Possible ROM Brief History: 40 y.o. A2 at 40 w 4 d no complications presented to L&D c/o spontaneous rupture of membranes with clear fluid Hospital Course Hospital Course 40 y.o. A2 at 40 w 4 d no complications presented to L&D c/o spontaneous rupture of membranes with clear fluid patient progressed to complete dilatation She pushed for more than two hours with inadequate descent at that time, it was decided to proceed with for delivery Primary low-transverse was done without any complications patient did well postoperatively and was discharged to home on the second postoperative day Information Peripartum Data: Delivery Method: complications: none Physical Exam Narrative: General comfortable, awake, alert VS afebrile, normal Lungs: clear Cor: RRR Abd: soft, nontender Wound clean and dry Ext: no edema Postop Hgb 10.2 Urinary Catheter Management: Hernandez: Cath Placed During This Visit: yes, but has since been removed by the nurse Reason for Continuing Indwelling Catheter: Decision to DC Catheter Urinary Catheter Date of Insertion: 05/14/25 Urinary Catheter Time of Insertion: 08:10 Date Urinary Catheter Removed: 05/15/25 Time Urinary Catheter Discontinued: 07:40 History History History 3 Term 1 0 Miscarriages/Ectopic 2 Living Children 1 Past Pregnancies Del. Date GA/Weeks Outcome Route Wt Inf Gender Labor Lgth Comp. Anesthesia Location 05/14/25 40 live - full term Female regional Discharge Data Studies Completed and Pending Laboratory Results WBC 13.50 10^3/uL (3.29-11.43) H 05/15/25 02:50 RBC 3.27 10^6/uL (3.85-5.65) L 05/15/25 02:50 Hgb 10.20 g/dL (11.27-16.99) L 05/15/25 02:50 Hct 30.4 % (36-47) L 05/15/25 02:50 MCV 93.0 fl (85-98) 05/15/25 02:50 MCH 31.2 pg (27-33) 05/15/25 02:50 MCHC 33.6 g/dL (30-55) 05/15/25 02:50 RDW 13.7 % (12.1-15.1) 05/15/25 02:50 Plt Count 111 10^3/cmm (157-399) L 05/15/25 02:50 MPV 12.6 fL (7.4-10.4) H 05/15/25 02:50 Neut % (Auto) 67.5 % 05/14/25 00:42 Lymph % (Auto) 19.0 % 05/14/25 00:42 Bent % (Auto) 7.1 % 05/14/25 00:42 Eos % (Auto) 4.5 % 05/14/25 00:42 Baso % (Auto) 0.4 % 05/14/25 00:42 Neut # (Auto) 6.34 10^3/uL (1.8-7.7) 05/14/25 00:42 Lymph # (Auto) 1.8 10^3/uL (0.8-4.8) 05/14/25 00:42 Bent # (Auto) 0.7 10^3/uL (0.2-0.9) 05/14/25 00:42 Eos # (Auto) 0.4 10^3/uL (0.0-0.8) 05/14/25 00:42 Baso # (Auto) 0.0 10^3/uL (0.0-0.1) 05/14/25 00:42 Nucleated RBC % (auto) 0 % 05/14/25 00:42 Nucleated RBCs # 0.0 /100WBC 05/14/25 00:42 Sodium 136 mmol/L (136-145) 05/14/25 00:42 Potassium 3.9 mmol/L (3.5-5.1) 05/14/25 00:42 Chloride 104 mmol/L (98-107) 05/14/25 00:42 Carbon Dioxide 20 mmol/L (22-29) L 05/14/25 00:42 Anion Gap 15.9 (5-19) 05/14/25 00:42 BUN 12 mg/dL (6-20) 05/14/25 00:42 Creatinine 0.6 mg/dL (0.5-0.9) 05/14/25 00:42 GFR Calculation 110.2 mL/min (90-130) 05/14/25 00:42 Glucose 90 mg/dL (65-115) 05/14/25 00:42 Calculated Osmolality 281 mOsm/kg (285-295) L 05/14/25 00:42 Uric Acid 5.9 mg/dL (2.4-5.7) H 05/14/25 00:42 Calcium 9.5 mg/dL (8.5-10.5) 05/14/25 00:42 Total Bilirubin 0.2 mg/dL (0.15-1.2) 05/14/25 00:42 AST 22 U/L (0-32) 05/14/25 00:42 ALT 16 U/L (0-33) 05/14/25 00:42 Alkaline Phosphatase 80 U/L (35-105) 05/14/25 00:42 Total Protein 6.1 g/dL (6.6-8.7) L 05/14/25 00:42 Albumin 3.4 g/dL (3.5-5.2) L 05/14/25 00:42 Globulin 2.7 g/dL (1.3-4.6) 05/14/25 00:42 Urine Color Yellow (Yellow) 05/14/25 00:42 Urine Appearance Clear (CLEAR) 05/14/25 00:42 Urine pH 6.0 (5-7) 05/14/25 00:42 Ur Specific Lithia 1.025 (1.005-1.030) 05/14/25 00:42 Urine Protein Negative (Negative) 05/14/25 00:42 Urine Glucose (UA) Negative (Normal) 05/14/25 00:42 Urine Ketones Trace (Negative) 05/14/25 00:42 Urine Blood 2+ (Negative) A 05/14/25 00:42 Urine Nitrate Negative (Negative) 05/14/25 00:42 Urine Bilirubin Negative (Negative) 05/14/25 00:42 Prot Sulfosalicylic Acd Cancelled 05/14/25 00:40 Urine Urobilinogen 1.0 mg/dL (Negative) 05/14/25 00:42 Ur Leukocyte Esterase Negative (Negative) 05/14/25 00:42 Urine RBC 21-50 /hpf (0-2) H 05/14/25 00:42 Urine WBC 0-5 /hpf (0-5) 05/14/25 00:42 Ur Squamous Epith Cells 0-5 /hpf (0-5) 05/14/25 00:42 Ur Transition Epith Cell Cancelled 05/14/25 00:40 Ur Renal Epithelial Cell Cancelled 05/14/25 00:40 Calcium Oxalate Crystal Cancelled 05/14/25 00:40 Uric Acid Crystals Cancelled 05/14/25 00:40 Triple Phos Crystals Cancelled 05/14/25 00:40 Other Crystals Cancelled 05/14/25 00:40 Amorphous Sediment Not Reportable 05/14/25 00:42 Urine Bacteria None seen /hpf (NONE) 05/14/25 00:42 Hyaline Casts 0-4 /lpf H 05/14/25 00:42 Fine Granular Casts Cancelled 05/14/25 00:40 Coarse Granular Casts Cancelled 05/14/25 00:40 RBC Casts Cancelled 05/14/25 00:40 Other Casts Cancelled 05/14/25 00:40 Urine Mucus Cancelled 05/14/25 00:40 Urine Trichomonas Cancelled 05/14/25 00:40 Urine Yeast Cancelled 05/14/25 00:40 Urine Sperm Cancelled 05/14/25 00:40 Ur Oval Fat Bodies Cancelled 05/14/25 00:40 U Random Total Protein 12 mg/dL 05/14/25 00:42 Urine Creatinine 137 mg/dL (28-217) 05/14/25 00:42 Protein/Creatinin Ratio 0.09 mg/mg CR 05/14/25 00:42 Blood Type A Positive 05/14/25 00:42 Rho(D) Type Rh positive 05/14/25 00:42 Antibody Screen Negative 05/14/25 00:42 Procedures Performed primary low-transverse Vitals Last Vital Signs Temp 98.3 F 05/16/25 14:45 Pulse 84 05/16/25 14:51 Resp 16 05/16/25 14:45 BP 151/75 05/16/25 14:51 Pulse Ox 98 05/16/25 14:45 O2 Del Method Room Air 05/16/25 08:35 Results Labs OB ([facility]): Obstetrics US 03/19/25 Blood Type A Positive 05/14/25 Antibody Screen Negative 05/14/25 Hct, (36-47) 30.4 % L 05/15/25 Hgb, (11.27-16.99) 10.20 g/dL L 05/15/25 Rho(D) Type Rh positive 05/14/25 Plt Count, (157-399) 111 10^3/cmm L 05/15/25 Hep Bs Antigen, (Nonreactive) Non-reactive 10/16/24 Hepatitis C Antibody, (Nonreactive) Non-reactive 10/16/24 Rubella IgG Antibody, (0.0-10.0) 45.8 IU/mL H 10/16/24 RPR, (Nonreactive) Nonreactive 10/16/24 HIV 1&2 Ab & HIV 1 Ag, (Non-Reactiv) Non-reactive 10/16/24 TSH, (0.27-4.20) 2.04 uIU/mL 10/16/24 Glucose 1 Hr 50 gm, (85-140) 94 mg/dL 02/22/25 Uric Acid, (2.4-5.7) 5.9 mg/dL H 05/14/25 Progesterone 29.65 ng/mL 09/04/24 Ser , Semi-Qnt 21529.00 mIU/mL 09/21/24 HCG, Qual, (Negative) Positive H 09/21/24 Urine Opiates Screen, (Negative) Negative ng/mL 10/16/24 Ur Barbiturates Screen, (Negative) Negative ng/mL 10/16/24 Ur Phencyclidine Scrn, (Negative) Negative ng/mL 10/16/24 Ur Amphetamines Screen, (Negative) Negative ng/mL 10/16/24 U Benzodiazepines Scrn, (Negative) Negative ng/mL 10/16/24 Urine Cocaine Screen, (Negative) Negative ng/mL 10/16/24 U Marijuana (THC) Screen, (Negative) Negative ng/mL 10/16/24 Micro Urine Specimen 05/14/25 Discharge Plan Discharge Patient Disposition: Home Condition: Stable Prescriptions: New oxycodone-acetaminophen [Percocet] 5-325 mg tablet 1 tab PO Q8H PRN (Reason: pain) Qty: 20 0RF Continued DHA 200 mg capsule 200 mg PO DAILY magnesium gluconate 12.5 mg magne- sium (250 mg) tablet 500 mg PO TID famotidine [Pepcid] 20 mg tablet 20 mg PO DAILY No Action Stool Softener 50 mg capsule 50 mg PO DAILY Discharge Order = DC NOW: Discharge Order (Routine); Ordered 05/16/25 Ordered By: Bubba Reed Referrals: Mariaelena De León, [facility] MANAGER [Nurse Practitioner, COOPERER] - 05/21/25 4:00 pm Discharge Diet: Usual diet Discharge Activity: Increase activity as tolerated Patient Instructions: Depression (DC), Opioid Safety (DC), Preeclampsia and Eclampsia After Delivery (GEN), Hemorrhage (DC), OB C, OB Discharge Report, OB Food/Drug Interaction Guide, Opioid Safety, OB Home Care, Patient Portal & Real Instructions, Abnormal Bleeding Discharge Attestations COOPERER Time Spent in Discharge Care*: less than 30 min Coding Level of Care Code Acute Code for Chg Fwd Diagnoses Delivery by section of full-term infant O82
[2025-05-16 14:45] VITALS: BP 151/75; PULSE 84; RESP 16; TEMP 36.8; O2SAT 98
[2025-05-16 14:51] VITALS: BP 151/75; PULSE 84
== END 2025-05-16 15:15 | disposition home or self-care (01) | DRG 788 ==
LOC: OPOB 01:09 → OBGYN 01:09
PROVIDERS: Admitting Provider Obstetrics & Gynecology; PCP Registered Nurse; Visit Provider Obstetrics & Gynecology
PROC: 10D00Z1 Extraction of Products of Conception, Low, Open Approach (ICD-10-PCS; CPT 59514; principal; 2025-05-14 14:30)
DX: O48.0 Post-term pregnancy (principal); Z3A.40 40 weeks gestation of pregnancy; Z37.0 Single live birth; O32.4XX0 Maternal care for high head at term, not applicable or unspecified; O77.0 Labor and delivery complicated by meconium in amniotic fluid; M25.552 Pain in left hip; O75.89 Other specified complications of labor and delivery
CPT/HCPCS: 36415; 51702; 59025; 59409; 80053; 81001; 82570; 83986; 84156; 84550; 85025; 85027; 86850; 86900; 87086; 96374; 96376; 99211; J0690; J1885; J2274; J2405; J2590; J2765; J2795; J3010; J3490; J7030; J7120; J7121; J9999